=== PATIENT | female | born 1950 | race Caucasian/White ===

== ENCOUNTER 2017-01-10 19:29 | Inpatient (IN) | payer MEDICARE, OTHER ==
[2017-01-10] MEDS ORDERED: methylPREDNISolone SOD SUCCI 125 MG/2 ML VIAL IV STA (20:13)
[2017-01-10] MEDS ORDERED: IPRATROPIUM-ALBUTEROL 3 ML NEB INHALATION STA (20:13)
[2017-01-10] MEDS ORDERED: MORPHINE SULFATE 2 MG/ML SYRINGE IVP ONE (20:15)
--- NOTE | 2017-01-10 20:16 | ED ---
SOB HPI <Srikanth Hampton - Last Filed: 01/10/17 22:21> - General Source: patient Mode of arrival: ambulatory Limitations: no limitations <Mary Wilkinson - Last Filed: 01/10/17 22:25> - General Chief Complaint: Shortness of Breath Stated Complaint: Diff Breathing, Cough, Swollen Leg Time Seen by Provider: 01/10/17 19:55 - History of Present Illness Initial Comments: 66-year-old female patient presents to emergency department today for evaluation of cough, shortness of breath, and right leg swelling. Patient states she did go to urgent care today did have a chest x-ray but was sent in for ultrasound of the right lower extremity. Patient states that cough has been present for the last week, but states that it has worsened over the last 2 days. Patient states that the cough is persistent and dry. She states that her ribs are sore from coughing. Patient states she is wheezing and does have some shortness of breath with activity. Patient states that a couple weeks ago she did have a contact dermatitis on her right leg from being in the [place], she did complete a course of antibiotics for this. Patient states that the right leg is swollen, however she denies any pain or difficulty ambulating related to this. She states she is occasionally dizzy. She denies any chest pain, palpitations, syncope, weakness, fever, chills, sputum production, abdominal pain, nausea, vomiting, constipation, diarrhea, urinary urgency, urinary frequency, dysuria, or hematuria. She has a history of tobacco use, COPD, or asthma. (Mary Wilkinson) - Related Data Home Medications Medication Instructions Recorded Confirmed ALPRAZolam [Xanax] 0.5 mg PO TID 01/10/17 01/10/17 Aspirin 81 mg PO DAILY@1800 01/10/17 01/10/17 Carvedilol [Coreg] 50 mg PO BID 01/10/17 01/10/17 Famotidine [Pepcid] 20 mg PO DAILY 01/10/17 01/10/17 Furosemide [Lasix] 20 mg PO DAILY 01/10/17 01/10/17 Insulin Aspart Protam & Aspart 50 unit SQ BID 01/10/17 01/10/17 [NovoLOG MIX 70-30 Flexpen] Levothyroxine Sodium [Synthroid] 50 mcg PO DAILY 01/10/17 01/10/17 Multivitamins, Thera [Multivitamin 1 tab PO DAILY@1800 01/10/17 01/10/17 (formulary)] NIFEdipine [NIFEdipine ER] 30 mg PO DAILY 01/10/17 01/10/17 Omeprazole [PriLOSEC] 20 mg PO AC-BRKFST 01/10/17 01/10/17 SILVER sulfADIAZINE CREAM 1 applic TOPICAL HS 01/10/17 01/10/17 [Silvadene Cream] Simvastatin [Zocor] 80 mg PO HS 01/10/17 01/10/17 Venlafaxine HCl ER [Effexor Xr] 150 mg PO DAILY 01/10/17 01/10/17 hydrALAZINE HCL [Apresoline] 100 mg PO TID 01/10/17 01/10/17 metFORMIN HCL [Glucophage] 1,000 mg PO BID 01/10/17 01/10/17 Allergies Allergy/AdvReac Type Severity Reaction Status Date / Time Penicillins Allergy Itching Verified 01/10/17 19:53 Review of Systems ROS Other: All systems not noted in ROS Statement are negative. <Srikanth Hampton - Last Filed: 01/10/17 22:21> ROS Other: All systems not noted in ROS Statement are negative. <Mary Wilkinson - Last Filed: 01/10/17 22:25> ROS Statement: Those systems with pertinent positive or pertinent negative responses have been documented in the HPI. Past Medical History Past Medical History: CVA/TIA, Diabetes Mellitus, Hypertension History of Any Multi-Drug Resistant Organisms: None Reported Past Surgical History: Cholecystectomy, Hysterectomy, Tonsillectomy Past Psychological History: Depression Smoking Status: Never smoker Past Alcohol Use History: None Reported Past Drug Use History: None Reported <Mary Wilkinson - Last Filed: 01/10/17 22:25> General Exam Limitations: no limitations General appearance: alert, in no apparent distress Head exam: Present: atraumatic, normocephalic, normal inspection Eye exam: Present: normal appearance, PERRL, EOMI. Absent: scleral icterus, conjunctival injection, periorbital swelling ENT exam: Present: normal exam, normal oropharynx, mucous membranes moist Neck exam: Present: normal inspection. Absent: tenderness, meningismus, lymphadenopathy Respiratory exam: Present: normal lung sounds bilaterally, wheezes (X-ray wheezes throughout), chest wall tenderness. Absent: respiratory distress, rales , rhonchi, stridor Cardiovascular Exam: Present: regular rate, normal rhythm, normal heart sounds. Absent: systolic murmur, diastolic murmur, rubs, gallop, clicks GI/Abdominal exam: Present: soft, normal bowel sounds. Absent: distended, tenderness, guarding, rebound, rigid Extremities exam: Present: full ROM, other (Right leg swelling, nonpitting.). Absent: tenderness Back exam: Present: normal inspection Neurological exam: Present: alert, oriented X3, CN II-XII intact Psychiatric exam: Present: normal affect, normal mood Skin exam: Present: warm, dry, intact, normal color, rash (Small rash noted to the right james. Clustered grouping of scabbed lesions.) <Mary Wilkinson - Last Filed: 01/10/17 22:25> Medical Decision Making - Lab Data Result diagrams: 01/10/17 20:15 01/10/17 20:15 <Srikanth Hampton - Last Filed: 01/10/17 22:21> - Lab Data Result diagrams: 01/10/17 20:15 01/10/17 20:15 <Mary Wilkinson - Last Filed: 01/10/17 22:25> - Medical Decision Making Medical decision-making. The patient was sent to the emergency room from [facility] because of both shortness of breath and swelling to her right leg. They ultrasound was done here in emergency room was negative. Labs showed an elevated d-dimer 1.43. Chest x-ray done at an outside institution was reviewed by me showing some chronic changes. Auscultation of lungs though did show bilateral crepitant rales. The patient labs also included BUN 27 creatinine 1.5 the GFR 35, BNP was elevated at 2590. I discussed the case with Dr. Rodriguez. The patient be admitted to his service in the morning she'll have a VQ scan. This evening he agrees with putting her on low-dose heparin. I discussed these findings with the patient should also be receiving IV Lasix. EKG was done and did not show any acute ST elevation or ischemic changes. Dr. Hampton (Srikanth Hampton) 66-year-old female patient presented to emergency department today for evaluation of shortness of breath and swelling to her right leg. Venous Doppler of the right lower extremity was negative for any DVT. However d-dimer was elevated at 1.4. Patient BUN and creatinine and GFR is 35 therefore VQ scan will be ordered for the morning. Patient will be started on low-dose heparin at the request of Dr. Rodriguez. BNP was also elevated at 2590. Patient will be given IV Lasix. Cardiology will be consulted. Dr. Hampton did discuss the case with Dr. Rodriguez she will be admitted to his service. (Mary Wilkinson) - Lab Data Lab Results 01/10/17 01/10/17 01/10/17 Range/Units 20:15 20:15 20:15 WBC 7.5 (3.8-10.6) k/uL RBC 4.27 (3.80-5.40) m/uL Hgb 12.9 (11.4-16.0) gm/dL Hct 39.8 (34.0-46.0) % MCV 93.0 (80.0-100.0) fL MCH 30.2 (25.0-35.0) pg MCHC 32.5 (31.0-37.0) g/dL RDW 15.0 (11.5-15.5) % Plt Count 269 (150-450) k/uL Neutrophils % 68 % Lymphocytes % 18 % Monocytes % 7 % Eosinophils % 4 % Basophils % 1 % Neutrophils # 5.1 (1.3-7.7) k/uL Lymphocytes # 1.4 (1.0-4.8) k/uL Monocytes # 0.5 (0-1.0) k/uL Eosinophils # 0.3 (0-0.7) k/uL Basophils # 0.1 (0-0.2) k/uL PT (9.0-12.0) sec INR (<1.2) APTT (22.0-30.0) sec D-Dimer (<0.60) mg/L FEU Sodium 140 (137-145) mmol/L Potassium 6.1 H (3.5-5.1) mmol/L Chloride 103 (98-107) mmol/L Carbon Dioxide 22 (22-30) mmol/L Anion Gap 15 mmol/L BUN 27 H (7-17) mg/dL Creatinine 1.50 H (0.52-1.04) mg/dL Est GFR (MDRD) Af Amer 42 (>60 ml/min/1.73 sqM) Est GFR (MDRD) Non-Af 35 (>60 ml/min/1.73 sqM) Glucose 116 H (74-99) mg/dL Calcium 9.1 (8.4-10.2) mg/dL Total Bilirubin 1.2 (0.2-1.3) mg/dL AST 64 H (14-36) U/L ALT 32 (9-52) U/L Alkaline Phosphatase 68 (38-126) U/L Total Creatine Kinase 196 H (30-135) U/L CK-MB (CK-2) 1.2 (0.0-2.4) ng/mL CK-MB (CK-2) Rel Index 0.6 Troponin I <0.012 (0.000-0.034) ng/mL NT-Pro-B Natriuret Pep pg/mL Total Protein 7.7 (6.3-8.2) g/dL Albumin 4.5 (3.5-5.0) g/dL Urine Color Urine Appearance (Clear) Urine pH (5.0-8.0) Ur Specific [place] (1.001-1.035) Urine Protein (Negative) Urine Glucose (UA) (Negative) Urine Ketones (Negative) Urine Blood (Negative) Urine Nitrite (Negative) Urine Bilirubin (Negative) Urine Urobilinogen (<2.0) mg/dL Ur Leukocyte Esterase (Negative) 01/10/17 01/10/17 01/10/17 Range/Units 20:15 20:15 20:15 WBC (3.8-10.6) k/uL RBC (3.80-5.40) m/uL Hgb (11.4-16.0) gm/dL Hct (34.0-46.0) % MCV (80.0-100.0) fL MCH (25.0-35.0) pg MCHC (31.0-37.0) g/dL RDW (11.5-15.5) % Plt Count (150-450) k/uL Neutrophils % % Lymphocytes % % Monocytes % % Eosinophils % % Basophils % % Neutrophils # (1.3-7.7) k/uL Lymphocytes # (1.0-4.8) k/uL Monocytes # (0-1.0) k/uL Eosinophils # (0-0.7) k/uL Basophils # (0-0.2) k/uL PT 10.9 (9.0-12.0) sec INR 1.1 (<1.2) APTT 24.1 (22.0-30.0) sec D-Dimer 1.43 H (<0.60) mg/L FEU Sodium (137-145) mmol/L Potassium (3.5-5.1) mmol/L Chloride (98-107) mmol/L Carbon Dioxide (22-30) mmol/L Anion Gap mmol/L BUN (7-17) mg/dL Creatinine (0.52-1.04) mg/dL Est GFR (MDRD) Af Amer (>60 ml/min/1.73 sqM) Est GFR (MDRD) Non-Af (>60 ml/min/1.73 sqM) Glucose (74-99) mg/dL Calcium (8.4-10.2) mg/dL Total Bilirubin (0.2-1.3) mg/dL AST (14-36) U/L ALT (9-52) U/L Alkaline Phosphatase (38-126) U/L Total Creatine Kinase (30-135) U/L CK-MB (CK-2) (0.0-2.4) ng/mL CK-MB (CK-2) Rel Index Troponin I (0.000-0.034) ng/mL NT-Pro-B Natriuret Pep 2570 pg/mL Total Protein (6.3-8.2) g/dL Albumin (3.5-5.0) g/dL Urine Color Yellow Urine Appearance Clear (Clear) Urine pH 5.5 (5.0-8.0) Ur Specific [place] 1.014 (1.001-1.035) Urine Protein Trace H (Negative) Urine Glucose (UA) Negative (Negative) Urine Ketones Negative (Negative) Urine Blood Negative (Negative) Urine Nitrite Negative (Negative) Urine Bilirubin Negative (Negative) Urine Urobilinogen <2.0 (<2.0) mg/dL Ur Leukocyte Esterase Negative (Negative) Disposition <Srikanth Hampton - Last Filed: 01/10/17 22:21> Decision to Admit Reason: Admit from EC Decision Date: 01/10/17 Decision Time: 22:23 <Mary Wilkinson - Last Filed: 01/10/17 22:25> Clinical Impression: Elevated d-dimer, Shortness of breath, CHF (congestive heart failure) Disposition: ADMITTED IP TO THIS [facility] Condition: Fair Referrals: Iftikhar Rodriguez MD [Primary Care Provider] - 1-2 days
[2017-01-10 20:43] LABS: Basophils # (A) 0.1 k/uL (0-0.2); Basophils % (A) 1 %; CH 31.5; Eosinophils # (A) 0.3 k/uL (0-0.7); Eosinophils % (A) 4 %; HCT 39.8 % (34.0-46.0); HDW 3.21; HGB 12.9 gm/dL (11.4-16.0); Luc # (Auto) 0.18; Luc % (Auto) 2; Lymphocytes # (A) 1.4 k/uL (1.0-4.8); Lymphocytes % (A) 18 %; MCH 30.2 pg (25.0-35.0); MCHC 32.5 g/dL (31.0-37.0); Monocytes # (A) 0.5 k/uL (0-1.0); Monocytes % (A) 7 %; Neutrophils # (A) 5.1 k/uL (1.3-7.7); Neutrophils % (A) 68 %; RBC 4.27 m/uL (3.80-5.40); WBC 7.5 k/uL (3.8-10.6); WBC (Perox) 7.54
[2017-01-10 20:44] LABS: Appearance,Urine Clear (Clear); Bilirubin,Urine Negative (Negative); Glucose,Urine (UA) Negative (Negative); Ketones,Urine Negative (Negative); Leukocyte Esterase,Urine Negative (Negative); Nitrite,Urine Negative (Negative); PH, Urine 5.5 (5.0-8.0); Protein,Urine Trace (Negative); Specific Gravity,Urine 1.014 (1.001-1.035); UA Billing (MACRO vs. MICRO) CHEM; Urobilinogen,Urine <2.0 mg/dL (<2.0)
[2017-01-10 20:53] LABS: Calcium 9.1 mg/dL (8.4-10.2); Potassium 6.1 mmol/L (3.5-5.1); Total Bilirubin 1.2 mg/dL (0.2-1.3); Total Protein 7.7 g/dL (6.3-8.2)
[2017-01-10 21:02] LABS: Creatine Kinase 196 U/L (30-135)
[2017-01-10 21:15] LABS: Creatine Kinase MB 1.2 ng/mL (0.0-2.4); Troponin I <0.012 ng/mL (0.000-0.034)
[2017-01-10 21:21] LABS: INR 1.1 (<1.2); Partial Thromboplastin Time 24.1 sec (22.0-30.0); Prothrombin Time 10.9 sec (9.0-12.0)
--- NOTE | 2017-01-10 22:01 | US ---
EXAMINATION TYPE: US venous doppler duplex LE RT DATE OF EXAM: 01/10/2017 9:43 PM COMPARISON: NONE CLINICAL HISTORY: Pain. Rt leg swelling, Pt fell x 1 month ago and has been swollen since. No hx of DVT. Takes baby aspirin SIDE PERFORMED: Right TECHNIQUE: The lower extremity deep venous system is examined utilizing real time linear array sonog patti with graded compression, doppler sonography and color-flow sonography. VESSELS IMAGED: External Iliac Vein (EIV) Common Femoral Vein Deep Femoral Vein Greater Saphenous Vein * Femoral Vein Popliteal Vein Small Saphenous Vein * Proximal Calf Veins (* superficial vessels) Right Leg: Appears negative for DVT Grayscale, color doppler, spectral doppler imaging performed of the deep veins of the right lower ext remity. There is normal flow, compressibility, vascular waveforms in the right lower extremity. No w orrisome focal fluid collection is seen on images saved. IMPRESSION: No ultrasound evidence for acute DVT in the right lower extremity.
[2017-01-10] MEDS ORDERED: NALOXONE 0.4 MG/ML 1 ML VIAL IV PRN (22:17)
[2017-01-10] MEDS ORDERED: FUROSEMIDE 10 MG/ML 4 ML VIAL IV STA (22:20)
[2017-01-10] MEDS ORDERED: HEPARIN SODIUM,PORCINE 5,000 UNIT/ML 1 ML VIAL IV PRN (22:21)
[2017-01-10] MEDS ORDERED: HEPARIN SODIUM,PORCINE 5,000 UNIT/ML 1 ML VIAL IV ONE (22:21)
[2017-01-10] MEDS ORDERED: SODIUM CHLORIDE 0.9% 1,000 ML IV STA (22:27)
[2017-01-10] MEDS ORDERED: HEPARIN SODIUM,PORCINE/D5W PMX 25,000 UNIT in DEXTROSE/WATER 1 500ML.BAG IV SCH (22:30)
[2017-01-10 23:39] LABS: Glucose,Whole Blood 146 mg/dL (75-99)
[2017-01-11 04:50] LABS: Basophils % (A) 0 %; CH 30.9; CHCM 32.9; Eosinophils % (A) 0 %; HCT 40.7 % (34.0-46.0); Luc # (Auto) 0.06; Luc % (Auto) 1; Lymphocytes # (A) 0.6 k/uL (1.0-4.8); Lymphocytes % (A) 11 %; MCH 30.3 pg (25.0-35.0); MCV 94.6 fL (80.0-100.0); Mean Platelet Volume 7.7; Monocytes # (A) 0.1 k/uL (0-1.0); Monocytes % (A) 1 %; Neutrophils # (A) 5.1 k/uL (1.3-7.7); Neutrophils % (A) 86 %; RDW 14.8 % (11.5-15.5); WBC 5.8 k/uL (3.8-10.6); WBC (Perox) 6.13
[2017-01-11 05:05] LABS: Calcium 9.1 mg/dL (8.4-10.2); Potassium 5.3 mmol/L (3.5-5.1); Total Bilirubin 0.4 mg/dL (0.2-1.3); Total Protein 6.8 g/dL (6.3-8.2)
[2017-01-11] MEDS ORDERED: HEPARIN SODIUM,PORCINE 5,000 UNIT/ML 1 ML VIAL IV STA (05:49)
[2017-01-11 07:35] LABS: Glucose,Whole Blood 238 mg/dL (75-99)
[2017-01-11] MEDS: INSULIN LISPRO (humaLOG) 300 UNIT/3 ML VIAL SQ SCH ×4 (08:19→21:00)
[2017-01-11] MEDS ORDERED: FUROSEMIDE 20 MG TAB PO SCH (09:00)
[2017-01-11 10:07] LABS: Hemoglobin A1C 5.8 % (4.2-6.1)
--- NOTE | 2017-01-11 10:15 | NM ---
EXAMINATION TYPE: NM pul vent and perfuse DATE OF EXAM: 01/11/2017 COMPARISON: NONE HISTORY: Shortness of breath and elevated d-dimer. TECHNIQUE: Utilizing inhalation of 71 mCi Tc 99m DTPA aerosol and intravenous injection of 5.41 mCi of Tc 99m MAA, ventilation and perfusion images are acquired post injection in multiple projections. FINDINGS: There is mild central airway deposition of aerosol. There is patchy perfusion and ventilati on. There are no VQ mismatches. IMPRESSION: THIS EXAMINATION IS LOW PROBABILITY FOR PULMONARY EMBOLUS.
[2017-01-11] MEDS: CARVEDILOL 12.5 MG TAB PO SCH ×2 (10:42→16:31)
[2017-01-11] MEDS: FAMOTIDINE 20 MG TAB PO SCH (10:43)
[2017-01-11] MEDS: PANTOPRAZOLE 40 MG TABLET PO SCH (10:43)
[2017-01-11] MEDS: hydrALAZINE HCL 50 MG TAB PO SCH ×3 (10:43→23:34)
[2017-01-11] MEDS: LEVOTHYROXINE 50 MCG TAB PO SCH (10:44)
[2017-01-11] MEDS: VENLAFAXINE HCL ER 150 MG CAP PO SCH (10:46)
[2017-01-11] MEDS: NIFEdipine XL 30 MG TAB.ER.24 PO SCH (10:46)
[2017-01-11] MEDS: metFORMIN 500 MG TAB PO SCH ×2 (10:47→16:31)
[2017-01-11] MEDS: INSULN ASP PRT/INSULIN ASPART 100 UNIT/ML 10 ML VIAL SQ SCH ×2 (10:58→17:53)
--- NOTE | 2017-01-11 11:17 | P.CRDCN ---
History of Present Illness Consult date: 01/11/17 Chief complaint: Shortness of breath History of present illness: This is a pleasant 66-year-old female patient with a past medical history significant for morbid obesity, diabetes, hypertension, dyslipidemia and carotid disease, presented to the hospital complaining of shortness of breath and edema of the right lower extremity. The patient's symptoms started about 3-4 days ago. She did not have any symptoms of chest pain or discomfort for. The patient sees a library clerical assistant out of the town but she never been told she has a CAD and never had any revascularization in the past. She underwent a d-dimer which came in to be abnormal but subsequently she had VQ scan which showed low probability for PE. The EKG showed sinus rhythm without any ischemic changes. The cardiac enzymes came in to be unremarkable. The Doppler of the lower extremity showed no DVT. The BNP came in to be elevated and more than 2000. I am going to DC the heparin, DC Lasix by mouth and start the patient on Lasix IV and obtain an echocardiogram and follow-up with her. Past Medical History Past Medical History: CVA/TIA, Diabetes Mellitus, Hypertension Additional Past Medical History / Comment(s): shingles History of Any Multi-Drug Resistant Organisms: None Reported Past Surgical History: Cholecystectomy, Hysterectomy, Tonsillectomy Additional Past Surgical History / Comment(s): Right Carotid Endart Past Anesthesia/Blood Transfusion Reactions: No Reported Reaction Past Psychological History: Depression Smoking Status: Never smoker Past Alcohol Use History: None Reported Past Drug Use History: None Reported - Past Family History Father Family Medical History: Congestive Heart Failure (CHF), Diabetes Mellitus Mother Family Medical History: Diabetes Mellitus Medications and Allergies Home Medications Medication Instructions Recorded Confirmed Type ALPRAZolam [Xanax] 0.5 mg PO TID 01/10/17 01/11/17 History Aspirin 81 mg PO DAILY@1800 01/10/17 01/11/17 History Carvedilol [Coreg] 50 mg PO BID 01/10/17 01/11/17 History Famotidine [Pepcid] 20 mg PO DAILY 01/10/17 01/11/17 History Furosemide [Lasix] 20 mg PO DAILY 01/10/17 01/11/17 History Insulin Aspart Protam & Aspart 50 unit SQ BID 01/10/17 01/11/17 History [NovoLOG MIX 70-30 Flexpen] Levothyroxine Sodium [Synthroid] 50 mcg PO DAILY 01/10/17 01/11/17 History Multivitamins, Thera [Multivitamin 1 tab PO DAILY@1800 01/10/17 01/11/17 History (formulary)] NIFEdipine [NIFEdipine ER] 30 mg PO DAILY 01/10/17 01/11/17 History Omeprazole [PriLOSEC] 20 mg PO AC-BRKFST 01/10/17 01/11/17 History SILVER sulfADIAZINE CREAM 1 applic TOPICAL HS 01/10/17 01/11/17 History [Silvadene Cream] Simvastatin [Zocor] 80 mg PO HS 01/10/17 01/11/17 History Venlafaxine HCl ER [Effexor Xr] 150 mg PO DAILY 01/10/17 01/11/17 History hydrALAZINE HCL [Apresoline] 100 mg PO TID 01/10/17 01/11/17 History metFORMIN HCL [Glucophage] 1,000 mg PO BID 01/10/17 01/11/17 History Allergies Allergy/AdvReac Type Severity Reaction Status Date / Time Penicillins Allergy Itching Verified 01/10/17 19:53 Physical Exam Vitals: Vital Signs Temp Pulse Pulse Resp BP BP Pulse Ox 01/11/17 10:39 73 150/66 93 L 01/11/17 08:35 95 01/11/17 07:00 78 16 134/65 95 01/11/17 02:00 96 01/10/17 23:46 141/84 01/10/17 23:35 96.9 F L 75 18 163/76 93 L 01/10/17 22:14 95 01/10/17 22:09 99.4 F 95 20 149/66 01/10/17 20:35 84 01/10/17 20:25 82 01/10/17 19:35 97.4 F L 87 20 135/63 94 L Intake and Output 01/10/17 01/11/17 01/11/17 22:59 06:59 14:59 Intake Total 138.736 Balance 138.736 Intake: Intake, IV Titration 138.736 Amount Heparin Sodium,Porcine/ 138.736 D5w Pmx 25,000 unit In Dextrose/Water 1 500ml. bag @ 6.49 UNITS/KG/HR 20 .01 mls/hr IV .Q24H GAGAN Rx#:[id number] Other: # Voids 3 Weight 154.221 kg 149.685 kg - Constitutional General appearance: no acute distress - Respiratory Respiratory: bilateral: diminished - Cardiovascular Rhythm: regular Heart sounds: normal: S1, S2 Results 01/11/17 04:30 01/11/17 04:30 Cardiac Enzymes 01/10/17 01/10/17 01/11/17 Range/Units 20: 20: 04:30 AST 64 H 27 (14-36) U/L CK-MB (CK-2) 1.2 (0.0-2.4) ng/mL Troponin I <0.012 (0.000-0.034) ng/mL Coagulation 01/10/17 01/11/17 Range/Units 20: 04:30 PT 10.9 (9.0-12.0) sec APTT 24.1 38.6 H (22.0-30.0) sec CBC 01/10/17 01/11/17 Range/Units 20: 04:30 WBC 7.5 5.8 (3.8-10.6) k/uL RBC 4.27 4.30 (3.80-5.40) m/uL Hgb 12.9 13.0 (11.4-16.0) gm/dL Hct 39.8 40.7 (34.0-46.0) % Plt Count 269 230 (150-450) k/uL Comprehensive Metabolic Panel 01/10/17 01/11/17 Range/Units 20:15 04:30 Sodium 140 141 (137-145) mmol/L Potassium 6.1 H 5.3 H (3.5-5.1) mmol/L Chloride 103 102 (98-107) mmol/L Carbon Dioxide 22 24 (22-30) mmol/L BUN 27 H 34 H (7-17) mg/dL Creatinine 1.50 H 1.60 H (0.52-1.04) mg/dL Glucose 116 H 257 H (74-99) mg/dL Calcium 9.1 9.1 (8.4-10.2) mg/dL AST 64 H 27 (14-36) U/L ALT 32 38 (9-52) U/L Alkaline Phosphatase 68 83 (38-126) U/L Total Protein 7.7 6.8 (6.3-8.2) g/dL Albumin 4.5 4.1 (3.5-5.0) g/dL Current Medications Generic Name Dose Route Start Last Admin Trade Name Freq PRN Reason Stop Dose Admin Alprazolam 0.5 mg 01/11/17 09:00 Xanax PO TID PRN Anxiety Aspirin 81 mg 01/11/17 18:00 Aspirin PO DAILY@1800 [facility] Atorvastatin Calcium 40 mg 01/11/17 21:00 Lipitor PO HS GAGAN Carvedilol 50 mg 01/11/17 09:00 01/11/17 10:42 Coreg PO 50 mg BID-W/MEALS GAGAN Administration Famotidine 20 mg 01/11/17 09:00 01/11/17 10:43 Pepcid PO 20 mg DAILY GAGAN Administration Furosemide 20 mg 01/11/17 09:00 01/11/17 10:43 Lasix PO 20 mg DAILY GAGAN Administration Heparin Sodium (Porcine) 0 unit 01/10/17 22:21 Heparin IV PER PROTOCOL PRN Low PTT Protocol Hydralazine HCl 100 mg 01/11/17 09:00 01/11/17 10:43 Apresoline PO 100 mg TID GAGAN Administration Heparin Sodium/Dextrose 25,000 500 mls @ 20.01 mls/hr 01/10/17 22:30 05:55 unit/ IV Solution IV 9.49 units/kg/hr .Q24H GAGAN 29.27 mls/hr Protocol Titration 6.49 UNITS/KG/HR Sodium Chloride 1,000 mls @ 20 mls/hr 01/10/17 22:27 01/10/17 22:56 Saline 0.9% IV 01/11/17 22:26 20 mls/hr .Q24H STA Administration Insulin Aspart 50 unit 01/11/17 09:00 01/11/17 10:58 Novolog Mix 70-30 Vial SQ 50 unit AC-BID GAGAN Administration Insulin Human Lispro 0 unit 01/11/17 07:30 01/11/17 08:19 Humalog SQ 8 unit ACHS GAGAN Administration Protocol Levothyroxine Sodium 50 mcg 01/11/17 09:00 01/11/17 10:44 Synthroid PO 50 mcg DAILY@0630 GAGAN Administration Metformin HCl 1,000 mg 01/11/17 09:00 01/11/17 10:47 Glucophage PO 1,000 mg AC-BID GAGAN Administration Multivitamins 1 each 01/11/17 18:00 Theragran PO DAILY@1800 GAGAN Naloxone HCl 0.2 mg 01/10/17 22:17 Narcan IV Q2M PRN Opioid Reversal Nifedipine 30 mg 01/11/17 09:00 01/11/17 10:46 Procardia Xl PO 30 mg DAILY GAGAN Administration Pantoprazole Sodium 40 mg 01/11/17 09:00 01/11/17 10:43 Protonix PO 40 mg AC-BRKFST GAGAN Administration Silver Sulfadiazine 1 applic 01/11/17 21:00 Silvadene Cream TOPICAL HS GAGAN Venlafaxine HCl 150 mg 01/11/17 09:00 01/11/17 10:46 Effexor Xr PO 150 mg DAILY GAGAN Administration Intake and Output 01/10/17 01/11/17 01/11/17 22:59 06:59 14:59 Intake Total 138.736 Balance 138.736 Intake: Intake, IV Titration 138.736 Amount Heparin Sodium,Porcine/ 138.736 D5w Pmx 25,000 unit In Dextrose/Water 1 500ml. bag @ 6.49 UNITS/KG/HR 20 .01 mls/hr IV .Q24H GAGAN Rx#:[id number] Other: # Voids 3 Weight 154.221 kg 149.685 kg 01/11/17 04:30 01/11/17 04:30 Assessment and Plan Plan: This is a pleasant 66-year-old female patient who was admitted with right lower extremity edema and shortness of breath. She was ruled out for PE. The BNP came in to be elevated. I will START the patient on Lasix IV and obtain an echocardiogram was Doppler and follow-up with her.
[2017-01-11] MEDS ORDERED: DOCUSATE 100 MG CAP PO PRN (11:35)
--- NOTE | 2017-01-11 11:57 | XR ---
EXAMINATION TYPE: XR chest 2V DATE OF EXAM: 01/11/2017 HISTORY: cough. REFERENCE: NONE. FINDINGS: The lungs are clear. Pleural spaces are clear. Heart size is upper limits of normal. There is hypertrophic spondylosis within the spine. IMPRESSION: NO ACUTE INTRATHORACIC DISEASE.
[2017-01-11] MEDS ORDERED: LEVOFLOXACIN 500MG-D5W PMX 500 MG in DEXTROSE/WATER 1 100ML.BAG IVPB SCH (12:00)
[2017-01-11] MEDS ORDERED: LEVOFLOXACIN 500 MG TAB PO SCH (12:00)
[2017-01-11 12:07] LABS: Glucose,Whole Blood 364 mg/dL (75-99)
[2017-01-11] MEDS: ALPRAZolam 0.5 MG TAB PO PRN (15:39)
[2017-01-11 17:27] LABS: Glucose,Whole Blood 107 mg/dL (75-99)
[2017-01-11] MEDS: MULTIVITAMINS, THERA 1 EACH TAB PO SCH (17:53)
[2017-01-11] MEDS: ASPIRIN 81 MG CHEW PO SCH (17:53)
[2017-01-11 19:08] LABS: Glucose,Whole Blood 123 mg/dL (75-99)
[2017-01-11 20:45] LABS: Glucose,Whole Blood 125 mg/dL (75-99)
[2017-01-11] MEDS: ATORVASTATIN 40 MG TAB PO SCH (20:58)
[2017-01-11] MEDS: FUROSEMIDE 10 MG/ML 4 ML VIAL IV SCH (20:59)
[2017-01-12] MEDS: LEVOTHYROXINE 50 MCG TAB PO SCH (06:12)
[2017-01-12 07:33] LABS: Glucose,Whole Blood 75 mg/dL (75-99)
[2017-01-12] MEDS: CARVEDILOL 12.5 MG TAB PO SCH ×2 (07:40→15:13)
[2017-01-12] MEDS: NIFEdipine XL 30 MG TAB.ER.24 PO SCH (07:41)
[2017-01-12] MEDS: INSULN ASP PRT/INSULIN ASPART 100 UNIT/ML 10 ML VIAL SQ SCH ×2 (07:41→16:51)
[2017-01-12] MEDS: FAMOTIDINE 20 MG TAB PO SCH (07:41)
[2017-01-12] MEDS: hydrALAZINE HCL 50 MG TAB PO SCH ×3 (07:41→21:51)
[2017-01-12] MEDS: VENLAFAXINE HCL ER 150 MG CAP PO SCH (07:41)
[2017-01-12] MEDS: INSULIN LISPRO (humaLOG) 300 UNIT/3 ML VIAL SQ SCH ×4 (07:41→21:49)
[2017-01-12] MEDS: metFORMIN 500 MG TAB PO SCH (07:41)
[2017-01-12] MEDS: PANTOPRAZOLE 40 MG TABLET PO SCH (07:41)
[2017-01-12] MEDS ORDERED: ACETAMINOPHEN TAB 500 MG TAB PO PRN (08:10)
[2017-01-12] MEDS: FUROSEMIDE 10 MG/ML 4 ML VIAL IV SCH (08:11)
[2017-01-12] MEDS: ALBUTEROL NEBULIZED 2.5 MG/3 ML INHALATION PRN ×2 (08:30→19:47)
[2017-01-12 09:01] LABS: Basophils % (A) 0 %; CH 31.2; CHCM 33.8; Eosinophils % (A) 0 %; HCT 39.4 % (34.0-46.0); HDW 3.15; HGB 12.7 gm/dL (11.4-16.0); Luc # (Auto) 0.16; Luc % (Auto) 1; Lymphocytes # (A) 2.1 k/uL (1.0-4.8); Lymphocytes % (A) 17 %; MCH 29.9 pg (25.0-35.0); MCHC 32.3 g/dL (31.0-37.0); MCV 92.7 fL (80.0-100.0); Mean Platelet Volume 8.1; Monocytes # (A) 0.4 k/uL (0-1.0); Monocytes % (A) 3 %; Neutrophils # (A) 9.6 k/uL (1.3-7.7); Neutrophils % (A) 78 %; RBC 4.25 m/uL (3.80-5.40); RDW 14.6 % (11.5-15.5); WBC 12.3 k/uL (3.8-10.6); WBC (Perox) 12.52
--- NOTE | 2017-01-12 09:01 | HP ---
CHIEF COMPLAINT: Shortness of breath. A 66-year-old white female was brought in by ambulance from her home in [place] with extreme shortness of breath. It happened off and on, but worsened over the last two days. She is a 66-year-old female who also has some discomfort and swelling in her right leg. She had been treated for cellulitis in this right leg over the last two weeks on antibiotics, which she was tapering off. Cultures were done of some of the weeping material that was negative for pathology. The right leg had actually improved until just recently. At that time she was seen in the emergency room, Doppler was completed of the leg, which was negative and the patient was to be sent for CT scan. Unfortunately her creatinine was greater than 1.5 and unable to do it so she was being set up for ventilation profusion scan. In the meantime I talked to the emergency room physician Dr. Srikanth Hampton, who started her on subcutaneous heparin and treated her accordingly. Her D-dimer was elevated at 1.43, but also her BNP was elevated at 25.90. At this period of time we are treating her for possibility of DVT and also probable congestive heart failure. She has a past medical history of CVA, TIA, insulin dependent diabetes mellitus , coronary artery disease with previous stent placement, and she sees a architectural wood model maker by Keagan Neri. She also has a history of anxiety, GE reflux, hyperlipidemia, euthyroid. Her medications at this point are Xanax 0.5 three times a day, aspirin 81, Coreg 50 mg b.i.d., Pepcid 20 daily, Lasix 20 daily, 70/30 50 units b.i.d. NovoLog, 50 mcg of Synthroid daily, multivitamin daily, nifedipine ER 30 daily, omeprazole 20 daily, Silvadene cream to her leg to area of irritation on the right daily, Coreg 80 daily, Effexor XR 150 daily, Apresoline 100 mg t.i.d and metformin at 1000 b.i.d. ALLERGIES ARE TO PENICILLIN. With past medical history she is a nonsmoker, nondrinker. She is and lives at home with her son. Surgical history is for cholecystectomy, hysterectomy, and tonsillectomy. 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 REVIEW OF SYSTEMS: CARDIOPULMONARY: Shortness of breath, no chest pain, no orthopnea, no paroxysmal internal dyspnea. GI: No hematemesis, melena, hematochezia. : Normal urination. NEUROMUSCULAR: She has weakness in her left side and uses a walker of previous stroke. She has decreased sensation of lower extremities by history. She says she has also peripheral neuropathy. PSYCHIATRIC: History of depression and anxiety, worse since the CVA. INTEGUMENTARY: Changes in the skin in the right lower leg, which was red previously and now has resolved. She has multiple bruises on her legs and arms. ENDOCRINE: A longstanding history of hypothyroid. 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 PHYSICAL EXAMINATION Blood pressure 138/80, respirations 16, heart rate in the 80s, temperature 98, pupils are equal, round and reactive to light and accommodation. ENT showed tympanic membranes and pharynx to be negative. Neck is supple with midline trachea. Chest is essentially clear to auscultation. HEART: Sinus rhythm with no murmur. Abdomen is obese, soft, nontender with no organomegaly. Lower extremities: some inflammation and swelling of the lower leg. Perhaps a minimal amount worse than previous. Left leg has +1 swelling also. She has some skin changes to right lower leg and decreased pulses bilaterally. Psychiatric: Patient is alert, well oriented to person, place and thing. No depression. Increase in anxiety today and tegumentary is redness on her legs that were just changed. Endocrine: Thyroid h as been addressed. No other masses or suspicion of endocrine disease. Review of the lab: Hemoglobin was 12.5, WBC 7.5, platelets were adequate. Sodium 140 and initially her potassium was 6.1, chloride 130 and 22 CO2. 1.5 creatinine with 27 BUN. CPK and troponins are negative. BNP was 2.5 down to 0. She has an elevated d-dimer of 1.4. ASSESSMENT: 1. Pulmonary emboli to rule out. 2. acute congestive heart failure with history of previous coronary artery disease. 3. Longstanding history of hypertension. 4. Hyperlipidemia. 5. Morbid obesity. 6. Insulin dependent diabetes mellitus. 7. Previous cerebrovascular accident with still some left arm and leg sequela. 8. Depression. 9. Anxiety. 10. ( ) stable. 11. Previous coronary artery disease. 12. Cellulitis of the right leg resolving. 13. Gastroesophageal reflux. PLAN: We are going to put on her on Lasix and decrease her CHF. Chest x-ray if it has not been done will be done. Her hyperkalemia will be addressed. [facility]. VQ scan is being planned. In the meantime she has been started on heparin. All medications have been renewed. Please refer to my orders. MTDD
[2017-01-12 09:08] LABS: Calcium 8.6 mg/dL (8.4-10.2); Potassium 4.2 mmol/L (3.5-5.1); Total Bilirubin 0.3 mg/dL (0.2-1.3); Total Protein 6.7 g/dL (6.3-8.2)
--- NOTE | 2017-01-12 09:54 | PN ---
I am seeing patient today. This afternoon she is less short of breath. Bringing up cough, no productive amount of phlegm. Her PE evaluation shows an elevated d-dimer but her ventilation perfusion scan has low probability. She has been evaluated by Dr. Bender, started on IV Lasix for shortness of breath. It has been noted in her evaluation here both at the urgent care and here in the hospital, chest x-ray was never done. PAST MEDICAL HISTORY: CVA, TIA, diabetes mellitus, hypertension, COPD which is asthma. She does have a history of shingles. She is euthyroid. Coronary artery disease which is stable. Longstanding history of hypertension, hyperlipidemia, anxiety neurosis along with depression and morbid obesity. She is being, again, evaluated by Dr. Bender. He ordered IV Lasix and also an echocardiogram. This morning she is still having a fair amount of cough, occasional shortness of breath. HISTORY OF SURGERIES: Included a right carotid endarterectomy, cholecystectomy , hysterectomy and tonsillectomy. SOCIAL HISTORY: Nonsmoker. She is . Nondrinker. She does live with her son. PAST PSYCHOLOGICAL HISTORY: Significant for depression and anxiety. MEDICATIONS: 1. Xanax 0.5 three times a day. 2. Aspirin 81daily. 3. Coreg 50 twice a day. 4. Pepcid 20 mg daily. 5. Lasix 20 daily. 6. Insulin 70/30, 50 mg b.i.d. 7. Levothroid 50 mcg daily. 8. One multivitamin daily. 9. Nifedipine ER 30 daily. 10. Prilosec 20 daily. 11. Silvadene cream topical to right leg. 12. Coreg 80 daily. 13. Effexor 150 daily. 14. Apresoline 100 three times a day. 15. ( ) 1000 b.i.d. ALLERGIES: PENICILLIN. No change in lab noted per last dictation. PHYSICAL EXAMINATION: Blood pressure 141/84, temperature 96.9, heart rate 70s, 18 respiratory rate. EYES: Pupils are equal, round, react to light and accommodation. ENT: Showed tympanic membranes and pharynx to be negative. NECK: Supple with midline trachea. CHEST: Some decreased breath sounds. HEART: Sinus rhythm. ABDOMEN: Soft, nontender with no organomegaly but she is obese. The right leg swelling is there but no change since previous examination. Negative Homans bilaterally. LAB: Please be noted, BNP and d-dimer were abnormal but V/Q scan came back negative. ASSESSMENT: 1. Shortness of breath, mild congestive heart failure probable in a history of coronary artery disease. 2. Tracheobronchitis. 3. Hypertension, long-term. 4. Gastroesophageal reflux. 5. Hyperlipidemia. 6. Euthyroid. 7. Morbid obesity. 8. Depression. 9. Anxiety neurosis. 10. Insulin dependent diabetes mellitus. PLAN: D/c her heparin, get a portable chest x-ray and Levaquin 500 mg every 24 hours. Medications again reinforced. Did talk with her nurse, Christel, early this afternoon and will follow her accordingly. JEFFERY
[2017-01-12 11:26] LABS: Glucose,Whole Blood 93 mg/dL (75-99)
[2017-01-12 11:37] VITALS: BMI 46.2
[2017-01-12] MEDS ORDERED: LEVOFLOXACIN 500 MG TAB PO SCH (12:00)
--- NOTE | 2017-01-12 12:07 | CDI ---
In responding to this query, please exercise your independent professional judgment. The [facility] Coding Staff and Clinical Documentation Specialists appreciate your assistance in clarifying documentation, maintaining compliance with coding guidelines, accurately documenting patients condition and capturing severity of illness. The fact that a question is asked does not imply that any particular answer is desired or expected. Communication forms are a method of clarifying documentation and are not made part of the Legal Health Record. Thank you in advance for your clarification. Last Revision, April 2015 [facility] [place] [address] [address] Documentation Clarification Form Date: 01/12/2017 11:57:00 AM From: Mecca Zuluaga RN, CDS Admit Date: 01/10/2017 10:23:00 PM Patient Name: Regina Main Visit Number: [id number] Dr. Iftikhar Rodriguez, 66 year old patient admitted for CHF and resolving cellulitis right leg History/Risk Factors : CVA, HTN, DM Clinical Indicators : BUN/CR/GFR: 51/1.80/28, GFR range since admission 35-28 Treatment: Chemistry lab draw, NS @20 then discontinued, In order to capture the severity of condition, please clarify if the condition signifies: CKD Stage 1 (GFR > 90) CKD Stage 2 (GFR 60-89) CKD Stage 3 (GFR 30-59) CKD Stage 4 (GFR 15-29) CKD Stage 5 (GFR <15) Unable to determine Other condition, please specify Please document in your progress notes and discharge summary in order to capture severity of illness and risk of mortality. Include clinical findings that support your diagnosis. FYI: Press F11 to launch patient chart. Thank you. JEFFERY
[2017-01-12] MEDS: ALPRAZolam 0.5 MG TAB PO PRN (13:26)
[2017-01-12] MEDS: FUROSEMIDE 20 MG TAB PO SCH (13:27)
[2017-01-12] MEDS: ASPIRIN 81 MG CHEW PO SCH (15:12)
[2017-01-12] MEDS: MULTIVITAMINS, THERA 1 EACH TAB PO SCH (15:13)
--- NOTE | 2017-01-12 15:30 | P.PN ---
Subjective This is a 66-year-old female with past history of morbid obesity, diabetes, hypertension, dyslipidemia and carotid disease. She was seen yesterday in consultation by Dr. Bender. Her initial complaint was shortness of breath, cough and edema to the right lower extremity. Doppler of the lower extremity is negative for DVT. However d-dimer elevated at 1.4. VQ scan was obtained and indicate low probability for pulmonary embolus. She was started on IV Lasix elevated BNP. Upon examination today she is seen sitting up in the chair in no acute distress. She states her shortness of breath has significantly improved but she is still coughing. Lower extremity evaluation reveals mild nonpitting edema right lower extremity, no edema noted to the left lower extremity. Patient states this to be a chronic problem due to chronic knee problems/pain. Her creatinine elevated from 1.5 to 1.8 Objective - Vital Signs Vital signs: Vital Signs Temp 97.6 F 01/12/17 15:00 Pulse 69 01/12/17 15:00 Resp 18 01/12/17 15:00 BP 128/57 01/12/17 15:00 Pulse Ox 91 L 01/12/17 15:00 Intake & Output 01/11/17 01/12/17 01/12/17 18:59 06:59 18:59 Intake Total 1300 1200 Balance 1300 1200 Weight 146.057 kg 146.057 kg Intake: Intake, IV Titration 1100 Amount Levofloxacin 500Mg-D5w 100 Pmx 500 mg In Dextrose/ Water 1 100ml.bag @ 100 mls/hr IVPB Q24H GAGAN Rx#: [id number] Sodium Chloride 0.9% 1, 1000 000 ml @ 20 mls/hr IV . Q24H STA Rx#:[id number] Oral 200 1200 Other: Voiding Method Bedside Commode Bedside Commode # Voids 2 4 # Bowel Movements 0 1 - Exam GENERAL: Well-appearing, well-nourished and in no acute distress. Patient is morbidly obese. NECK: Supple without JVD or thyromegaly. LUNGS: Breath sounds clear to auscultation bilaterally and equal. No wheezes, rales or rhonchi. HEART: Regular rate and rhythm without murmurs, rubs or gallops. S1 and S2 heard. ABDOMEN: Soft, nontender, normoactive bowel sounds. EXTREMITIES: Normal range of motion mild trace edema right lower extremity, nonpitting no edema left lower [place]. No clubbing or cyanosis. Peripheral pulses intact and strong. - Labs CBC & Chem 7: 01/12/17 08:30 01/12/17 08:30 Labs: Abnormal Lab Results - Last 24 Hours (Table) 01/11/17 01/11/17 01/11/17 Range/Units 17:16 19:04 20:38 WBC (3.8-10.6) k/uL Neutrophils # (1.3-7.7) k/uL BUN (7-17) mg/dL Creatinine (0.52-1.04) mg/dL Glucose (74-99) mg/dL POC Glucose (mg/dL) 107 H 123 H 125 H (75-99) mg/dL 01/12/17 01/12/17 Range/Units 08:30 08:30 WBC 12.3 H (3.8-10.6) k/uL Neutrophils # 9.6 H (1.3-7.7) k/uL BUN 51 H (7-17) mg/dL Creatinine 1.80 H (0.52-1.04) mg/dL Glucose 109 H (74-99) mg/dL POC Glucose (mg/dL) (75-99) mg/dL Microbiology - Last 24 Hours (Table) 01/10/17 20:15 Blood Culture - Preliminary Blood No Growth after 24 hours Assessment and Plan Plan: ASSESSMENT 1. Shortness of breath, not likely to be cardiac related. We will review the echocardiogram when it is completed. 2. Essential hypertension 3. Morbid obesity. 4. Acute kidney injury. PLAN Chest x-ray indicates no signs of heart failure, echocardiogram as been ordered and is pending. EKG reveals normal sinus mechanism no ST elevation/changes. Patient's symptoms improving. This appears to be more of a pulmonary condition rather than cardiac. Lasix has been changed from IV to oral 20 mg daily. Nurse Practitioner note has been reviewed, I agree with a documented findings and plan of care. Patient was seen and examined.
--- NOTE | 2017-01-12 15:51 | ECHOF ---
Referral Reason:shortness of breath MEASUREMENTS -------- HEIGHT: 182.9 cm WEIGHT: 146.1 kg BP: 144/76 RVIDd: 4.4 cm (< 3.3) IVSd: 1.7 cm (0.6 - 1.1) LVIDd: 3.9 cm (3.9 - 5.3) LVPWd: 1.5 cm (0.6 - 1.1) IVSs: 2.4 cm LVIDs: 2.3 cm LVPWs: 2.1 cm Ao Diam: 3.1 cm (2.0 - 3.7) AV Cusp: 1.8 cm (1.5 - 2.6) LA Diam: 3.3 cm (2.7 - 3.8) MV EXCURSION: 16.399 mm (> 18.000) MV EF SLOPE: 52 mm/s (70 - 150) EPSS: 0.6 cm MV E Rasta: 0.47 m/s MV DecT: 166 ms MV A Rasta: 1.11 m/s MV E/A Ratio: 0.42 RAP: 5.00 mmHg RVSP: 8.59 mmHg FINDINGS -------- Sinus rhythm. This was a technically difficult study with suboptimal views. There is moderate concentric left ventricular hypertrophy. Overall left ventricular systolic function is normal with, an EF between 55 - 60 %. The right ventricle is severely enlarged. The left atrium is normal in size. The right atrium is normal in size. 1.5mg of Definity was utilized for enhancement of images Aortic valve is trileaflet and is mildly thickened. The mitral valve leaflets are mildly thickened. There is trace mitral regurgitation. Trace tricuspid regurgitation present. The right ventricular systolic pressure, as measured by Doppler, is 8.59mmHg. Pulmonic valve appears structurally normal. The aortic root size is normal. The pericardium is normal. CONCLUSIONS -------- 1. Sinus rhythm. 2. The mitral valve leaflets are mildly thickened. 3. There is trace mitral regurgitation. 4. Trace tricuspid regurgitation present. 5. The right ventricular systolic pressure, as measured by Doppler, is 8.59mmHg. 6. Pulmonic valve appears structurally normal. 7. The aortic root size is normal. 8. The pericardium is normal. 9. This was a technically difficult study with suboptimal views. 10. There is moderate concentric left ventricular hypertrophy. 11. Overall left ventricular systolic function is normal with, an EF between 55 - 60 %. 12. The right ventricle is severely enlarged. 13. The left atrium is normal in size. 14. The right atrium is normal in size. 15. 1.5mg of Definity was utilized for enhancement of images 16. Aortic valve is trileaflet and is mildly thickened. MANAGER HOUSE: Marian Palafox RDCS
[2017-01-12 16:50] LABS: Glucose,Whole Blood 105 mg/dL (75-99)
[2017-01-12 20:52] LABS: Glucose,Whole Blood 177 mg/dL (75-99)
[2017-01-12] MEDS: ATORVASTATIN 40 MG TAB PO SCH (21:49)
--- NOTE | 2017-01-13 04:52 | PN ---
CHIEF COMPLAINT: This is a 66-year-old white female that came in with severe shortness of breath. Saw her here yesterday. We felt that she had some mild CHF and also some ( ). Her ventilation perfusion scan was negative. At this time, patient is doing much better. I did another chest x-ray on her because she had a lot of rhonchi and my presumptive diagnosis is tracheobronchitis. At this time, review of systems: CARDIOPULMONARY: She has some indigestion. She is telling me after a turkey sandwich, some wheezing and cough, but minimal to no shortness of breath. No chest pain, orthopnea or paroxysmal nocturna dyspnea. GI is just a stomach upset from a previous sandwich, a little heartburn. No melena, no hematochezia. She was constipated, was given Colace and has had a bowel movement. : A lot of urination, poly urination since started on Lasix twice a day. NEUROMUSCULAR: She has weakness from her legs and arm especially on the left side where she has had previous CVA. SKIN: She says her leg is much better where the swelling was and also where the excoriation of the skin is. At this time, her vital signs show blood pressure of 144/76, heart rates in the 70s, respiratory rate is 60. EYES: Pupils are equal, round and reactive to light and accommodation. ENT show tympanic membranes and pharynx to be negative. Neck is supple with midline trachea. CHEST: Essentially clear except for some rhonchi right at the anterior upper lobes. Negative wheezing. Negative rales. Heart is sinus rhythm with no murmur. Abdomen is soft, nontender with no organomegaly, obesity. Extremities are negative. NEW LAB: There is nothing to offer here. Also lower leg swelling is decreased tremendously. ASSESSMENT: 1. Acute congestive heart failure. 2. Long-standing history of hypertension. 3. History of coronary artery disease without stent placement. 4. Long-standing insulin dependent diabetes mellitus with some peripheral neuropathy. 5. Morbid obesity. 6. Long-standing history of hypertension. 7. Euthyroid. 8. Previous cerebrovascular accident with some left lower and upper extremity weakness. 9. Tracheobronchitis. We will continue her on the Levaquin. We will continue on other medications accordingly. Will follow the lead of cardiology. Please refer to my orders. MTDD
[2017-01-13] MEDS: LEVOTHYROXINE 50 MCG TAB PO SCH (06:21)
[2017-01-13 07:48] VITALS: RESP 16
[2017-01-13] MEDS: NIFEdipine XL 30 MG TAB.ER.24 PO SCH (08:08)
[2017-01-13] MEDS: INSULIN LISPRO (humaLOG) 300 UNIT/3 ML VIAL SQ SCH ×3 (08:08→17:16)
[2017-01-13] MEDS: INSULN ASP PRT/INSULIN ASPART 100 UNIT/ML 10 ML VIAL SQ SCH ×2 (08:08→17:16)
[2017-01-13] MEDS: CARVEDILOL 12.5 MG TAB PO SCH ×2 (08:08→16:27)
[2017-01-13] MEDS: FUROSEMIDE 20 MG TAB PO SCH (08:09)
[2017-01-13] MEDS: hydrALAZINE HCL 50 MG TAB PO SCH ×2 (08:09→16:26)
[2017-01-13] MEDS: PANTOPRAZOLE 40 MG TABLET PO SCH (08:09)
[2017-01-13] MEDS: VENLAFAXINE HCL ER 150 MG CAP PO SCH (08:09)
[2017-01-13 08:10] LABS: Glucose,Whole Blood 137 mg/dL (75-99)
[2017-01-13 11:41] LABS: Glucose,Whole Blood 217 mg/dL (75-99)
[2017-01-13 15:55] VITALS: BP 116/68; PULSE 81; TEMP 98.3
[2017-01-13] MEDS: ASPIRIN 81 MG CHEW PO SCH (16:27)
[2017-01-13] MEDS: MULTIVITAMINS, THERA 1 EACH TAB PO SCH (16:27)
[2017-01-13 17:07] LABS: Glucose,Whole Blood 152 mg/dL (75-99)
--- NOTE | 2017-01-14 15:54 | CDI ---
In responding to this query, please exercise your independent professional judgment. The [facility] Coding Staff and Clinical Documentation Specialists appreciate your assistance in clarifying documentation, maintaining compliance with coding guidelines, accurately documenting patients condition and capturing severity of illness. The fact that a question is asked does not imply that any particular answer is desired or expected. Communication forms are a method of clarifying documentation and are not made part of the Legal Health Record. Thank you in advance for your clarification. Last Revision, August 2016 [facility] [place] [address] [place] [address] Documentation Clarification Form Date: 01/14/2017 3:40:00 PM From: Sara Misha Admit Date: 01/10/2017 10:23:00 PM Patient Name: Regina Main Visit Number: [id number] Discharge Date: 01/13/17 Dr. Iftikhar Rodriguez, CHF is documented in the H&P and PNs. History/Risk Factors: CAD, HTN, hyperlipidema, morbid obesity, cellulities R leg Clinical Indicators: SOB and swelling right leg VS/Pulse OX: T-97.4, P-75, RR- 20, O2-90, BP-121/63 BNP: 2950 Echocardiogram Results: Right ventricular systolic pressure, as measured by doppler, is 8.59mmHg. Overall left ventricular systolic is normal with, an EF between 55-60%. Chest X Ray: Heart size is upper limits of normal. Treatment: IV Lasix and O2 Cardiology Consults: Rule out PE, start on Lasix IV and echo and doppler. In your professional opinion, can you please clarify the acuity and type of CHF if known? Systolic Heart Failure: Acute Chronic Acute on Chronic Diastolic Heart Failure: Acute Chronic Acute on Chronic Systolic & Diastolic Heart Failure: Acute Chronic Acute on Chronic Unable to determine Other, please specify Please document addendum in your final progress notes or discharge summary in order to capture severity of illness and risk of mortality. Include clinical findings that support your diagnosis. FYI: Press F11 to launch patient chart. If you have a question about this query, please contact Maricel Morin, Foam Gun Operator, [facility] at [phone] between 8am and 5pm. JEFFERY
--- NOTE | 2017-01-16 10:52 | CDI ---
In responding to this query, please exercise your independent professional judgment. The [facility] Coding Staff and Clinical Documentation Specialists appreciate your assistance in clarifying documentation, maintaining compliance with coding guidelines, accurately documenting patients condition and capturing severity of illness. The fact that a question is asked does not imply that any particular answer is desired or expected. Communication forms are a method of clarifying documentation and are not made part of the Legal Health Record. Thank you in advance for your clarification. Last Revision, August 2016 [facility] [place] [address] [place] [address] Documentation Clarification Form Date: 01/14/2017 3:40:00 PM From: Sarajeffrey Cabral Admit Date: 01/10/2017 10:23:00 PM Patient Name: Regina Main Visit Number: [id number] Discharge Date: 01/10/17 Dr. Madan Rodriguez CHF is documented in the H&P and PNs. History/Risk Factors: CAD, HTN, hyperlipidema, morbid obesity, cellulitis R leg Clinical Indicators: SOB and swelling right leg VS/Pulse OX: T-97.4, P-75, RR- 20, O2-90, BP-121/63 BNP: 2950 Echocardiogram Results: Right ventricular systolic pressure, as measured by doppler, is 8.59mmHg. Overall left ventricular systolic is normal with, an EF between 55-60%. Chest X Ray: Heart size is upper limits of normal. Treatment: IV Lasix and O2 Cardiology Consults: Rule out PE, start on Lasix IV and echo and doppler. In your professional opinion, can you please clarify the acuity and type of CHF if known? Systolic Heart Failure: Acute Chronic Acute on Chronic Diastolic Heart Failure: Acute Chronic Acute on Chronic Systolic & Diastolic Heart Failure: Acute Chronic Acute on Chronic Unable to determine Other, please specify Please document addendum in your consult in order to capture severity of illness and risk of mortality. Include clinical findings that support your diagnosis. FYI: Press F11 to launch patient chart. If you have a question about this query, please contact Maricel Morin, Health Insurance Agent, [facility] at [phone] between 8am and 5pm. JEFFERY
--- NOTE | 2017-01-16 15:47 | DS ---
This patient is a 66-year-old white female who came in with shortness of breath , cough which was productive in nature; appeared to be over a 2- to 3-day period ; appears to be improving. Of interest, she had an elevated D-dimer. Her ventilation perfusion scan was negative. She had an elevated BNP. She was initially started on Lasix and she seemed to improve as she developed this cough 2 to 3 days before admission which she continued. She was then started on Levaquin ( ). At this period of time, her discharge diagnoses are as follow : 1. Mild congestive heart failure. 2. Tracheobronchitis. 3. Hypertension. 4. Gastroesophageal reflux. 5. Hyperlipidemia. 6. Euthyroid. 7. Morbid obesity. 8. Depression. 9. Anxiety neurosis. 10. Insulin-dependent diabetes. She will be discharged home in good condition. She is to stay on a low-sodium 1800-calorie diet. Her medications on discharge are: 1. Tylenol p.r.n. pain. 2. Xanax 0.5 up to 3 times a day. 3. Aspirin 81 mg. 4. Lipitor 40 mg. 5. Coreg 50 mg b.i.d. 6. Colace 100 mg b.i.d. 7. Lasix 20 in the morning. 8. Apresoline 100 three times a day. 9. Insulin 70/30 50 mg twice a day. 10. Levaquin 500 q.48 hours. 11. Synthroid 50 mg daily. 12. Glucophage 1000 b.i.d. 13. Theragran and vitamin. 14. Procardia 30 daily. 15. Protonix 40 before breakfast. 16. Silvadene to her leg p.r.n. 17. Effexor 150 mg daily. She will see me in the office in a week. [facility]
== END 2017-01-13 18:07 | disposition home or self-care (01) | DRG 292 ==
LOC: EC 19:29 → 4MS4W 22:23
PROVIDERS: ADMIT Family Medicine; ATTEND Family Medicine
DX: I11.0 Hypertensive heart disease with heart failure (principal); Z68.41 Body mass index [BMI] 40.0-44.9, adult; N17.9 Acute kidney failure, unspecified; I50.9 Heart failure, unspecified; L03.115 Cellulitis of right lower limb; E11.42 Type 2 diabetes mellitus with diabetic polyneuropathy; E87.5 Hyperkalemia; J44.9 Chronic obstructive pulmonary disease, unspecified; E66.01 Morbid (severe) obesity due to excess calories; E78.5 Hyperlipidemia, unspecified; F32.9 Major depressive disorder, single episode, unspecified; F41.1 Generalized anxiety disorder; K59.00 Constipation, unspecified; I25.10 Atherosclerotic heart disease of native coronary artery without angina pectoris; K21.9 Gastro-esophageal reflux disease without esophagitis; Z79.82 Long term (current) use of aspirin; Z79.4 Long term (current) use of insulin; Z79.84 Long term (current) use of oral hypoglycemic drugs; Z79.899 Other long term (current) drug therapy; Z95.5 Presence of coronary angioplasty implant and graft; Z87.891 Personal history of nicotine dependence; Z86.73 Personal history of transient ischemic attack (TIA), and cerebral infarction without residual deficits; Z90.49 Acquired absence of other specified parts of digestive tract; Z90.710 Acquired absence of both cervix and uterus; Z86.19 Personal history of other infectious and parasitic diseases; Z88.0 Allergy status to penicillin; Z82.49 Family history of ischemic heart disease and other diseases of the circulatory system
CPT/HCPCS: 36415; 71020; 78582; 80053; 81003; 82550; 82553; 83036; 83880; 84484; 85025; 85379; 85610; 85730; 87040; 93005; 93306; 94640; 94760; 96365; 96375; 99285